=== PATIENT | male | born 1970 | race Two or more races ===

== ENCOUNTER 2024-09-29 01:18 | Emergency (ER) | payer SELFPAY ==
[2024-09-29 01:19] VITALS: BMI 30.2
--- NOTE | 2024-09-29 01:35 | EKG_ITS ---
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
[2024-09-29 01:36] VITALS: BP 146/89; PULSE 110; RESP 22; TEMP 36.4; O2SAT 98
--- NOTE | 2024-09-29 01:36 | PD.EDADULT ---
ED General RME/HPI General Chief complaint: General Adult/Misc Complain Stated complaint: DON'T FEEL GOOD ATE PAULA 1999 Time Seen by Provider: 09/29/24 01:36 Source: patient Arrival date/time: 09/29/24 01:18 54-year-old male with no known medical history presents to the emergency room with a chief complaint of nausea and vomiting after eating a marijuana brownie at 8:30 PM today. Mode of arrival: ambulatory Limitations: no limitations Related Data Previous Rx's ?Medication ?Instructions ?Recorded ondansetron 4 mg disintegrating 4 mg PO Q8H PRN nausea and 09/29/24 tablet vomiting #14 tabs Allergies Allergy/AdvReac Type Severity Reaction Status Date / Time No Known Allergies Allergy Verified 09/29/24 03:06 Review of Systems Review of Systems Systems Reviewed: All systems reviewed, normal except as documented Constitutional Constitutional: Reports system reviewed and no additional complaints, except as documented, Denies fatigue, Denies fever(s), Denies headache(s) and Denies weakness Eyes Eyes: Reports system reviewed and no additional complaints, except as documented, Denies blurry vision and Denies change in vision ENT Ears, Nose, Mouth, and Throat: Reports system reviewed and no additional complaints, except as documented, Denies otalgia, Denies headache(s), Denies nasal congestion, Denies throat swelling and Denies vertigo Cardiovascular Cardiovascular: Reports system reviewed and no additional complaints, except as documented, Denies chest pain, Denies dyspnea and Denies dyspnea on exertion Respiratory Respiratory: Reports system reviewed and no additional complaints, except as documented, Denies chest congestion, Denies cough, Denies dyspnea, Denies dyspnea on exertion and Denies wheezing Gastrointestinal Gastrointestinal: Reports system reviewed and no additional complaints, except as documented, Denies abdominal pain, Denies cramping, Reports nausea and Reports vomiting Genitourinary Genitourinary: Reports system reviewed and no additional complaints, except as documented, Denies dysuria and Denies hematuria Musculoskeletal Musculoskeletal: Reports system reviewed and no additional complaints, except as documented and Denies back pain Integumentary/Breasts Skin/Breast: Reports system reviewed and no additional complaints, except as documented and Denies wounds Neurologic Neurologic: Reports system reviewed and no additional complaints, except as documented, Denies confusion, Denies headache(s), Denies lack of coordination, Denies vertigo and Denies weakness Psychiatric Psychiatric: Reports system reviewed and no additional complaints, except as documented, Denies anxiety, Denies confusion, Denies depression, Denies paranoia, Denies suicidal ideation and Denies tactile hallucinations Endocrine Endocrine: Reports system reviewed and no additional complaints, except as documented and Denies fatigue Hematologic/Lymphatic Hematologic/Lymphatic: Reports system reviewed and no additional complaints, except as documented and Denies lymphadenopathy Allergic/Immunologic Allergic/Immunologic: Reports system reviewed and no additional complaints, except as documented, Denies throat swelling, Denies urticaria and Denies wheezing Past Medical History Social History SMOKING STATUS: Never smoker ED Exam General Limitations: Present no limitations General appearance: Present alert and in no apparent distress Head Head exam: Present atraumatic Eye Eye exam: Present normal appearance, PERRL and EOMI ENT ENT exam: Present normal exam, normal oropharynx and mucous membranes moist Neck Neck exam: Present normal inspection, full ROM and trachea midline Chest Chest inspection: Present normal inspection and symmetric chest wall rise Respiratory Respiratory exam: Present normal lung sounds bilaterally; Absent respiratory distress, wheezes, stridor or accessory muscle use Cardiovascular Cardiovascular exam: Present regular rate, normal rhythm and normal heart sounds Abdominal Exam Abdominal exam: Present soft and normal bowel sounds; Absent distention, tenderness, guarding, rebound or rigidity Extremities Exam Extremities exam: Present normal inspection and full ROM Back Exam Back exam: Present normal inspection and full ROM Neurological Exam Neurological exam: Present alert, oriented X3, CN II-XII intact and normal gait Psychiatric Psychiatric exam: Present normal affect and normal mood Skin Skin exam: Present warm, dry, intact and normal color Course Quality Measures none Orders Category Date Time Status EKG (ED ONLY) *Do not use* NOW Care 09/29/24 01:35 Completed Insert IV NOW Care 09/29/24 02:23 Active EKG (ED Only) Stat Exams 09/29/24 01:35 Draft BMP [Basic Metabolic Panel] Stat Lab 09/29/24 04:43 Completed CBC Stat Lab 09/29/24 01:49 Completed CMP [Comprehensive Metabolic Panel] Stat Lab 09/29/24 01:49 Completed Troponin I Stat Lab 09/29/24 01:49 Completed Ondansetron Odt [Zofran Odt] Med 09/29/24 01:35 Discontinued 4 mg PO X1 ONE Potassium Chloride [K-Dur] Med 09/29/24 02:26 Discontinued 40 meq PO X1 ONE Sodium Chloride 0.9% 1000 ml [Ns] 1,000 ml Med 09/29/24 02:23 Discontinued IV 999 mls/hr Sodium Chloride 0.9% 1000 ml [Ns] 1,000 ml Med 09/29/24 02:26 Discontinued IV 999 mls/hr Vital Signs Vital signs: Vital Signs Temperature 97.6 F 09/29/24 01:36 Pulse Rate 110 H 09/29/24 01:36 Respiratory Rate 22 H 09/29/24 01:36 Blood Pressure 146/89 H 09/29/24 01:36 Pulse Oximetry (%) 98 09/29/24 01:36 Oxygen Delivery Method Room Air 09/29/24 01:36 O2 saturation 98% within normal limits MDM Patient data External records reviewed:: [facility] previous records Clinical information provided by:: patient Social determinants that could affect healthcare access:: none Patient has the following chronic illnesses:: No chronic illness How is presenting disease/condition affected by chronic disease/condition?: no chronic disease Evaluation data The following diagnostics were reviewed and interpreted by me:: lab results and radiology exam(s) Lab and/or radiology exams considered but not ordered:: Labs and radiology exams considered and ordered Interpretation Summary: N/A Medications Medications considered but not ordered:: Medication given Medication administrations:: Medication Administration History Discontinued Medications Sodium Chloride (Ns) 1,000 mls @ 999 mls/hr IV .Q1H1M ONE Stop: 09/29/24 03:23 Last Infusion: 09/29/24 05:18 Dose: Infused Documented By: Admin: 09/29/24 03:29 Dose: 999 mls/hr Documented By: HELEN Sodium Chloride (Ns) 1,000 mls @ 999 mls/hr IV .Q1H1M ONE Stop: 09/29/24 03:26 Last Infusion: 09/29/24 05:18 Dose: Infused Documented By: Admin: 09/29/24 03:50 Dose: 999 mls/hr Documented By: HELEN Ondansetron HCl (Ondansetron Odt 4 Mg Tabrap) 4 mg PO X1 ONE; Protocol Stop: 09/29/24 01:36 Last Admin: 09/29/24 03:28 Dose: 4 mg Documented By: HELEN Potassium Chloride (Potassium Chloride 20 Meq Tabcr) 40 meq PO X1 ONE Stop: 09/29/24 02:27 Last Admin: 09/29/24 03:28 Dose: 40 meq Documented By: HELEN Medication given Consultations Consultation(s) initiated? (list below): No Diagnosis Differential Diagnosis ED Complaint MDM: Hyperglycemia/gastroenteritis/food poisoning Most likely diagnosis given after review of the tests above:: Hyperglycemia Admission Indicated Admission indicated?: not indicated Explain why admission is indicated or not indicated:: N/A Admission Request Was there a request for admission?: No Disposition Plan Disposition Plan: Discharge Discharge Attestation Discharge Attestation: The patient and all family members were given an opportunity to ask questions and understood the discharge instructions. Discharge instructions specifically effects, indications for sooner follow up or return to the emergency department, and the expected course of current diagnosis. Patient condition: Stable Medical Decision Making MDM Narrative MDM Narrative: 54-year-old male with no known medical history presents to the emergency room with a chief complaint of nausea and vomiting after eating a marijuana brownie at 8:30 PM today. Clinically the patient appears nontoxic and in no apparent distress. Physical examination shows a soft nondistended nontender abdomen. Patient is complaining of nausea and vomiting as well as a headache after eating a marijuana brownie. CBC and CMP were completed and shows hyperglycemia as well as a mildly open anion gap. 2 L of fluids were given to the patient and a new BMP was drawn with significant improvement. Patient was discharged and educated to follow-up with his primary care provider and return to the emergency room for any evidence of worsening signs or symptoms. Differential Diagnosis Differential Diagnosis: Hyperglycemia/gastroenteritis/food poisoning Lab Data 09/29/24 01:49 09/29/24 04:43 Labs: Lab Results 09/29/24 09/29/24 Range/Units 01:49 04:43 WBC 11.3 H (3.8-10.6) Thou/mm3 RBC 4.85 (4.50-5.90) Miln/mm3 Hgb 15.5 (13.5-16.0) g/dL Hct 42.4 (41.0-53.0) % MCV 87 (80-100) fL MCH 32.0 (25.0-35.0) pg MCHC 36.6 (31.0-37.0) g/dl RDW Std Deviation 37.2 (35.1-43.9) fL Plt Count 209 (140-440) Thou/mm3 Neut % (Auto) 46 (37-80) % Lymph % (Auto) 43 (10-50) % Alcorn % (Auto) 7 (0-12) % Eos % (Auto) 2 (0-10) % Baso % (Auto) 1 (0-2.5) % Neut # (Auto) 5.2 (1.8-7.7) Thou/mm3 Lymph # (Auto) 4.9 H (1.0-4.8) Thou/mm3 Alcorn # (Auto) 0.8 (0.0-0.8) Thou/mm3 Eos # (Auto) 0.2 (0.0-0.5) Thou/mm3 Baso # (Auto) 0.1 (0.0-0.2) Thou/mm3 Immature Gran # (Auto) 0.07 H (0.00-0.00) Thou/mm3 Absolute Nucleated RBC 0.00 (0.00-0.00) Thou/mm3 Immature Gran % 1 H (0-0) % Nucleated RBC % 0 (0) /100 WBC Sodium 131 L 132 L (136-145) mMol/L Potassium 3.1 L 4.3 D (3.4-5.1) mMol/L Chloride 96 L 100 (98-107) mMol/L Carbon Dioxide 18.2 L 24.4 (20.0-31.0) mMol/L Anion Gap 17 H 8 (7-16) BUN 6 L 6 L (9-23) mg/dL Creatinine 0.9 0.8 (0.6-1.3) mg/dL Estim Creat Clear Calc 95.0 106.8 (>60) mL/min eGFR > 60 > 60 (60 - ) See Note BUN/Creatinine Ratio 7 L 8 L (12-20) Ratio Glucose 407 H* 345 H D (74-106) mg/dL Calculated Osmolality 277 276 (275-295) Calcium 9.8 9.1 (8.3-10.6) mg/dL Corrected Calcium 9.8 (8.5-10.1) mg/dL Total Bilirubin 0.7 (0.3-1.2) mg/dL AST 51 H (0-34) U/L ALT 38 (10-49) U/L Alkaline Phosphatase 168 H (46-116) U/L Troponin I < 0.002 (0.0-0.045) ng/mL Total Protein 8.4 H (5.7-8.2) gm/dL Albumin 4.6 (3.5-5.0) gm/dL Globulin 3.8 H (2.3-3.5) gm/dL Albumin/Globulin Ratio 1.2 (1.2-2.2) Discharge Plan Plan Patient Disposition: HOME (Self Care) Disposition Comment: Stable Prescriptions/Referrals Prescriptions/Med Rec: New ondansetron 4 mg tablet,disintegrating 4 mg PO Q8H PRN (Reason: nausea and vomiting) Qty: 14 0RF Referrals: No Primary/Family,Physician [Primary Care Provider] - In 1 week Problem List Clinical Impression: Acute hyperglycemia, Nausea & vomiting Patient/Caregiver Discharge Instructions Education Materials: High Blood Sugar (Hyperglycemia), ED Vomiting (Adult) Additional Instructions: Yary un seguimiento con fry proveedor de atenci?n primaria en las pr?ximas 24 a 48 horas. Fry nivel de az?car en la rosey estaba elevado. Percival janet medicamentos para la diabetes seg?n lo recetado. Le envi? aubrey receta de medicamentos para ayudarle con janet n?useas y v?mitos. Por favor rec?jalo y ll?velo mer se indica. Si hay evidencia de signos o s?ntomas que empeoran, regrese a la alex de emergencias de inmediato. Print Language: Lao Stand Alone Forms: Thea Award Info., Patient Portal Info Letter PA/EDUCATIONAL FUNDRAISING DIRECTOR Supervising Physician PA/EDUCATIONAL FUNDRAISING DIRECTOR Supervising Physician: Dr Noriega
[2024-09-29 01:58] LABS: Basophils # (Auto) 0.1 Thou/mm3 (0.0-0.2); Basophils % (Auto) 1 % (0-2.5); Eosinophils # (Auto) 0.2 Thou/mm3 (0.0-0.5); Eosinophils % (Auto) 2 % (0-10); Hematocrit 42.4 % (41.0-53.0); Hemoglobin 15.5 g/dL (13.5-16.0); Immature Granulocytes % (Auto) 1 % (0-0); Immature Granulocytes Auto 0.07 Thou/mm3 (0.00-0.00); Lymphocytes # (Auto) 4.9 Thou/mm3 (1.0-4.8); Lymphocytes % (Auto) 43 % (10-50); Mean Corpuscular HGB Conc 36.6 g/dl (31.0-37.0); Mean Corpuscular Volume 87 fL (80-100); Monocytes # (Auto) 0.8 Thou/mm3 (0.0-0.8); Monocytes % (Auto) 7 % (0-12); Neutrophils # (Auto) 5.2 Thou/mm3 (1.8-7.7); Neutrophils % (Auto) 46 % (37-80); Nucleated Red Blood Cell % 0 /100 WBC (0); Platelet Count 209 Thou/mm3 (140-440); RDW Standard Deviation 37.2 fL (35.1-43.9); Red Blood Count 4.85 Miln/mm3 (4.50-5.90); White Blood Count 11.3 Thou/mm3 (3.8-10.6)
[2024-09-29 02:21] LABS: Alanine Aminotransferase 38 U/L (10-49); Albumin, Serum 4.6 gm/dL (3.5-5.0); Albumin/Globulin Ratio 1.2 (1.2-2.2); Alkaline Phosphatase 168 U/L (46-116); Anion Gap 17 (7-16); Aspartate Amino Transferase 51 U/L (0-34); BUN/Creatinine Ratio 7 Ratio (12-20); Bilirubin,Total 0.7 mg/dL (0.3-1.2); Blood Urea Nitrogen 6 mg/dL (9-23); Calcium 9.8 mg/dL (8.3-10.6); Calcium (Corrected) 9.8 mg/dL (8.5-10.1); Carbon Dioxide 18.2 mMol/L (20.0-31.0); Chloride 96 mMol/L (98-107); Creatinine (Component) 0.9 mg/dL (0.6-1.3); Globulin 3.8 gm/dL (2.3-3.5); Osmolality,Calculated 277 (275-295); Potassium 3.1 mMol/L (3.4-5.1); Sodium 131 mMol/L (136-145); Total Protein 8.4 gm/dL (5.7-8.2); Troponin I < 0.002 ng/mL (0.0-0.045); eGFR > 60 See Note
--- NOTE | 2024-09-29 02:22 | PC.NURSE ---
Critical Value Glucose 407 received by provider SYRUP FILTERER Hortensia Cast at this time.
[2024-09-29 02:23] LABS: Glucose 407 mg/dL (74-106)
[2024-09-29] MEDS: ONDANSETRON ODT 4 MG TABRAP PO (03:28)
[2024-09-29] MEDS: POTASSIUM CHLORIDE 20 mEq TABCR 40 MEQ PO (03:28)
[2024-09-29] MEDS: SODIUM CHLORIDE 0.9% 1000 ML 1,000 ML 999 ML IV ×2 (03:29→03:50)
[2024-09-29 04:43] VITALS: BP 143/89; PULSE 18; RESP 22; TEMP 36.4; O2SAT 98
[2024-09-29 05:17] VITALS: BP 145/88; PULSE 102; RESP 16; O2SAT 94
[2024-09-29 05:22] LABS: Anion Gap 8 (7-16); BUN/Creatinine Ratio 8 Ratio (12-20); Blood Urea Nitrogen 6 mg/dL (9-23); Calcium 9.1 mg/dL (8.3-10.6); Carbon Dioxide 24.4 mMol/L (20.0-31.0); Chloride 100 mMol/L (98-107); Creatinine (Component) 0.8 mg/dL (0.6-1.3); Estimated Creatinine Clearance 106.8 mL/min (>60); Glucose 345 mg/dL (74-106); Osmolality,Calculated 276 (275-295); Potassium 4.3 mMol/L (3.4-5.1); Sodium 132 mMol/L (136-145); eGFR > 60 See Note
--- NOTE | 2024-09-29 05:24 | PC.NURSE ---
pt has been sleeping. Pt awake now and feels much better. ambulated to BR without difficulty.
== END 2024-09-29 05:52 | disposition home or self-care (01) ==
PROVIDERS: Nurse Practitioner Family; Emergency Provider Emergency Medicine
DX: R11.2 Nausea with vomiting, unspecified (principal); R73.9 Hyperglycemia, unspecified; R00.0 Tachycardia, unspecified
CPT/HCPCS: 36415; 80048; 80053; 84484; 85025; 93005; 99284; J7030; Q0162; A9270

== ENCOUNTER 2025-06-02 04:16 | Emergency (ER) | payer SELFPAY ==
--- NOTE | 2025-06-02 04:30 | XR_ITS ---
Examination: CT abdomen and pelvis without contrast. Coronal 3-D reconstructions. Sagittal 2-D reconstructions. Date and time of exam:June 02, 2025, 0541 hrs. Indications: Right flank pain onset today CTDI: vol (mGy): 7.15 DLP: (mGycm): 456 Technique: Axial images of the abdomen have been obtained, 3 mm slice thickness Intravenous contrast material has not been administered. Low dose protocols were performed. One or more of the following dose reduction techniques were used; automated exposure control, adjustment of the mA and/or KV according to patient size, use of iterative reconstruction technique. Findings: Bibasilar atelectasis No renal or ureteral calculi, no hydronephrosis Aorta normal size No pancreatic or adrenal mass Perinephric stranding No renal or ureteral calculi, no hydronephrosis No bowel obstruction Normal appendix No diverticulitis No bladder mass or bladder calculi, no significant prostatomegaly Fat-containing inguinal hernias Moderate osteopenia with moderate disc narrowing L5-S1, L5-S1 4 mm central right paracentral disc bulge displacing the right S1 nerve root Impression: Perinephric stranding, which can be seen with urinary tract infection No renal or ureteral calculi, no hydronephrosis
--- NOTE | 2025-06-02 04:31 | PD.EDRME ---
Rapid Medical Screening Exam RME Arrival date/time: 06/02/25 04:16 This is a case of 55-year-old male with no medical history came in in the emergency room due to right lower abdominal pain radiating to the right flank for 2 days associated with nausea vomiting worsening of the symptoms this patient decided to start consult here in the emergency room Chief Complaint: Abdominal Pain Time Seen by Provider: 06/02/25 04:30
[2025-06-02 04:32] VITALS: BP 142/88; PULSE 96; RESP 16; TEMP 37; O2SAT 96
[2025-06-02 05:02] LABS: Basophils # (Auto) 0.1 Thou/mm3 (0.0-0.2); Basophils % (Auto) 1 % (0-2.5); Eosinophils # (Auto) 0.2 Thou/mm3 (0.0-0.5); Eosinophils % (Auto) 2 % (0-10); Hematocrit 45.0 % (41.0-53.0); Hemoglobin 15.7 g/dL (13.5-16.0); Immature Granulocytes Auto 0.01 Thou/mm3 (0.00-0.00); Lymphocytes # (Auto) 3.8 Thou/mm3 (1.0-4.8); Lymphocytes % (Auto) 44 % (10-50); Mean Corpuscular HGB Conc 34.9 g/dl (31.0-37.0); Mean Corpuscular Hemoglobin 32.7 pg (25.0-35.0); Mean Corpuscular Volume 94 fL (80-100); Monocytes # (Auto) 0.6 Thou/mm3 (0.0-0.8); Monocytes % (Auto) 6 % (0-12); Neutrophils # (Auto) 4.0 Thou/mm3 (1.8-7.7); Neutrophils % (Auto) 47 % (37-80); Nucleated Red Blood Cell # 0.00 Thou/mm3 (0.00-0.00); Nucleated Red Blood Cell % 0 /100 WBC (0); Platelet Count 209 Thou/mm3 (140-440); RDW Standard Deviation 42.5 fL (35.1-43.9); Red Blood Count 4.80 Miln/mm3 (4.50-5.90); White Blood Count 8.7 Thou/mm3 (3.8-10.6)
[2025-06-02 05:22] LABS: Alanine Aminotransferase 42 U/L (10-49); Albumin, Serum 4.5 gm/dL (3.5-5.0); Albumin/Globulin Ratio 1.4 (1.2-2.2); Alkaline Phosphatase 124 U/L (46-116); Amylase 131 U/L (30-118); Anion Gap 13 (7-16); Aspartate Amino Transferase 90 U/L (0-34); BUN/Creatinine Ratio 6 Ratio (12-20); Bilirubin,Total 0.4 mg/dL (0.3-1.2); Blood Urea Nitrogen 5 mg/dL (9-23); Calcium 9.7 mg/dL (8.3-10.6); Calcium (Corrected) 9.7 mg/dL (8.5-10.1); Carbon Dioxide 26.5 mMol/L (20.0-31.0); Chloride 104 mMol/L (98-107); Creatinine (Component) 0.9 mg/dL (0.6-1.3); Globulin 3.3 gm/dL (2.3-3.5); Glucose 124 mg/dL (74-106); Osmolality,Calculated 283 (275-295); Potassium 4.0 mMol/L (3.4-5.1); Sodium 143 mMol/L (136-145); Total Protein 7.8 gm/dL (5.7-8.2); eGFR > 60 See Note
[2025-06-02 05:39] LABS: Collection Type, Urine Clean Catch; Squamous Epithelial Cell,Urine 0 /hpf (0-5)
[2025-06-02 05:43] LABS: Bilirubin,Urine Negative (Negative); Blood,Urine 1+ (Negative); Clarity,Urine Clear (Clear/Hazy); Color,Urine Lt-Yellow (Lt Yel-Yel); Glucose, Urine Negative (Negative); Ketones,Urine Negative (Negative); Leukocyte Esterase,Urine Negative (Negative); Nitrite,Urine Negative (Negative); PH,Urine 6.0 (5.0-7.0); Protein,Urine 2+ (Neg - Trace); RBC,Urine 1 /hpf (0-3); Specific Gravity,Urine 1.012 (1.001-1.035); Urobilinogen,Urine Negative mg/dL (0.0-1.0); WBC,Urine 1 /hpf (0-5)
--- NOTE | 2025-06-02 06:14 | PRELIM_ITS ---
CT scan of the abdomen and pelvis without intravenous contrast (axial sections with sagittal and coronal reformats) June 02, 2025 0541 hours Clinical History: kdiney stone No prior study is available for comparison. Findings: Bibasilar dependent atelectasis is present. Perinephric fat stranding bilaterally. The liver, gallbladder, pancreas, spleen and adrenals are unremarkable on this noncontrast study. No evidence of bowel obstruction. A moderate amount of fecal material is present in the colon. The appendix is within normal limits (images 65-80/159). There is no mesenteric or retroperitoneal adenopathy. A small fat-containing infraumbilical hernia is present. The urinary bladder is unremarkable. There is no free fluid or free air. Degenerative changes are identified in the spine. There is a chronic deformity of the coccyx. Impression: No evidence of renal/ureteric calculus or hydroureteronephrosis. Perinephric fat stranding bilaterally. While nonspecific, the possibility of urinary infection cannot be excluded. Recommend clinical correlation. Report Electronically Signed By: Manny Watt 06/02/2025 6:12:54 AM [EST]
--- NOTE | 2025-06-02 06:33 | EDNOTE_ITS ---
ED Abdominal Pain RME/HPI General Chief Complaint: Abdominal Pain Stated complaint: RIGHT FLANK PAIN Time seen by provider: 06/02/25 04:30 Arrival date/time: 06/02/25 04:16 Source: patient, RN notes reviewed and old records reviewed Mode of arrival: ambulatory Limitations: no limitations RME / HPI RME / HPI narrative: 55yom presents to ED for right flank pain radiating to RLQ x2 days. Patient reports nausea but no vomiting. No fever, diarrhea or urinary symptoms reported. No medications or treatments since symptom onset. Denies history of kidney stones. Related Data Previous Rx's ?Medication ?Instructions ?Recorded ondansetron 4 mg disintegrating 4 mg PO Q8H PRN nausea and 09/29/24 tablet vomiting #14 tabs ibuprofen 600 mg tablet 600 mg PO Q6H PRN pain #30 t abs 06/02/25 ondansetron 4 mg disintegrating 4 mg PO Q6H PRN nausea and 06/02/25 tablet vomiting #10 tabs Allergies Allergy/AdvReac Type Severity Reaction Status Date / Time No Known Allergies Allergy Verified 06/02/25 04:17 Review of Systems Review of Systems Systems Reviewed: All systems reviewed, normal except as documented Constitutional Constitutional: Denies chills and Denies fever(s) Gastrointestinal Gastrointestinal: Reports abdominal pain, Denies loose stools, Reports nausea and Denies vomiting Genitourinary Genitourinary: Denies dysuria, Reports flank pain and Denies hematuria Past Medical History Surgical History OTHER SURGICAL HX: R wrist ortho Social History SMOKING STATUS: Never smoker SUBSTANCE USE: does not use ALCOHOL: Current (social) Past Medical History Comments PMH COMMENT: denies pmhx ED Exam General Limitations: Present no limitations General appearance: Present alert and in no apparent distress Head Head exam: Present atraumatic and normocephalic Eye Eye exam: Present normal appearance, PERRL and EOMI ENT ENT exam: Present normal exam and mucous membranes moist Neck Neck exam: Present normal inspection and full ROM Chest Chest inspection: Present normal inspection and symmetric chest wall rise Respiratory Respiratory exam: Present normal lung sounds bilaterally; Absent respiratory dis tress Cardiovascular Cardiovascular exam: Present regular rate and normal rhythm Abdominal Exam Abdominal exam: Present soft; Absent distention, tenderness, guarding or rebound Extremities Exam Extremities exam: Present normal inspection and full ROM Back Exam Back exam: Absent CVA tenderness (R) or CVA tenderness (L) Neurological Exam Neurological exam: Present alert and oriented X3 Psychiatric Psychiatric exam: Present normal affect and normal mood Skin Skin exam: Present warm, dry, intact and normal color Course Quality Measures none Orders Category Date Time Status CT abdomen pelvis wo con Stat Exams 06/02/25 04:30 Completed Amylase Stat Lab 06/02/25 04:50 Completed CBC Stat Lab 06/02/25 04:50 Completed Comprehensive Metabolic Panel Stat Lab 06/02/25 04:50 Completed Urinalysis Stat Lab 06/02/25 03:35 Completed Ketorolac Inj [Toradol Inj] Med 06/02/25 06:47 Discontinued 30 mg IM X1 ONE Ondansetron Odt [Zofran Odt] Med 06/02/25 06:47 Discontinued 4 mg PO X1 ONE Vital Signs Vital signs: Vital Signs Temperature 98.6 F 06/02/25 04:32 Pulse Rate 96 06/02/25 04:32 Respiratory Rate 16 06/02/25 04:32 Blood Pressure 142/88 H 06/02/25 04:32 Pulse Oximetry (%) 96 06/02/25 04:32 Oxygen Delivery Method Room Air 06/02/25 04:32 Abdominal Pain MDM MDM Narrative MDM Narrative:: 55yom presents to ED for right flank pain radiating to RLQ x2 days. Patient reports nausea but no vomiting. No fever, diarrhea or urinary symptoms reported. No medications or treatments since symptom onset. Denies history of kidney stones. Patient is nontoxic-appearing, afebrile, vitals are stable. ED workup reassuring. No evidence of kidney stone however, 1+ blood in urine. Possibly recently passed stone. Encouraged adequate fluids, symptomatic treatment prn. Stable for discharge, RTED precautions given. Patient data External records reviewed:: [facility] previous records (09/29/2024 ED visit for hyperglycemia) Clinical information provided by:: patient Social determinants that could affect healthcare access:: none Patient has the following chronic illnesses:: None How is presenting disease/condition affected by chronic disease/condition?: no chronic disease Evaluation data The following diagnostics were reviewed and interpreted by me:: lab results and radiology exam(s) Lab and/or radiology exams considered but not ordered:: none Interpretation Summary: No leukocytosis No GREGORY UA negative leuks/1+blood CT abd/pelvis: Impression: No evidence of renal/ureteric calculus or hydroureteronephrosis. Perinephric fat stranding bilaterally. While nonspecific, the possibility of urinary infection cannot be excluded. Recommend clinical correlation. Report Electronically Signed By: Manny Watt 06/02/2025 6:12:54 AM [EST] Medications / Prescriptions Medications or Prescriptions considered but not ordered:: No antibiotics recommended at this time Medication administrations:: Medication Administration History Discontinued Medications Ketorolac Tromethamine (Ketorolac Inj 30 Mg/Ml Vial) 30 mg IM X1 ONE Stop: 06/02/25 06:48 Last Admin: 06/02/25 07:02 Dose: 30 mg Documented By: CVL Ondansetron HCl (Ondansetron Odt 4 Mg Tabrap) 4 mg PO X1 ONE; Protocol Stop: 06/02/25 06:48 Last Admin: 06/02/25 07:00 Dose: 4 mg Documented By: CVL Above medications administered in ED Consultations Consultation(s) initiated? (list below): No Diagnosis Differential diagnosis abdominal pain: abdominal pain, acute appendicitis, calculus of kidney, constipation and gastroenteritis Most likely diagnosis given after review of the tests above:: Flank pain Admission Indicated Admission indicated?: not indicated Admission Request Was there a request for admission?: No Disposition Plan Disposition Plan: Discharge Discharge Attestation Discharge Attestation: The patient and all family members were given an opportunity to ask questions and understood the discharge instructions. Discharge instructions specifically effects, indications for sooner follow up or return to the emergency department, and the expected course of current diagnosis. Patient condition: Stable Discharge Plan Plan Patient Disposition: HOME (Self Care) Patient condition on transfer: Stable Prescriptions/Referrals Prescriptions/Med Rec: New ondansetron 4 mg tablet,disintegrating 4 mg PO Q6H PRN (Reason: nausea and vomiting) Qty: 10 0RF ibuprofen 600 mg tablet 600 mg PO Q6H PRN (Reason: pain) Qty: 30 0RF No Action ondansetron 4 mg tablet,disintegrating 4 mg PO Q8H PRN (Reason: nausea and vomiting) Qty: 14 0RF Referrals: No Primary/Family,Physician [Primary Care Provider] - In 1 week Problem List Clinical Impression: Right flank pain, Nausea Patient/Caregiver Discharge Instructions Education Materials: ED Flank Pain, Uncertain Cause Print Language: Armenian Stand Alone Forms: Thea Award Info., Patient Portal Info Letter PA/RESTAURANT TEAM MEMBER Supervising Physician PA/RESTAURANT TEAM MEMBER Supervising Physician: Dat
[2025-06-02] MEDS: ONDANSETRON ODT 4 MG TABRAP PO (07:00)
[2025-06-02] MEDS: KETOROLAC INJ 30 MG/ML VIAL IM (07:02)
[2025-06-02 07:14] VITALS: RESP 18
== END 2025-06-02 07:15 | disposition home or self-care (01) ==
PROVIDERS: Nurse Practitioner Family; Emergency Provider Emergency Medicine
DX: R10.9 Unspecified abdominal pain (principal); R11.0 Nausea
CPT/HCPCS: 36415; 74176; 80053; 81001; 82150; 85025; 96372; 99283; J1885; Q0162